=== PATIENT | female | born 1990 | race Caucasian/White ===

== ENCOUNTER 2017-02-26 19:24 | Emergency (ER) | payer OTHER ==
[~2017-02-26 19:24] MED LIST: PREN1CAP33
[2017-02-26] MEDS ORDERED: PROM25TA10 PO (20:11)
[2017-02-26] MEDS ORDERED: PROM1SUP7 RECTAL (20:12)
[2017-02-26] MEDS ORDERED: LACTATED RINGER'S 1000 ML INJ 1,000 ML IV SCH (20:12)
--- NOTE | 2017-02-26 20:12 | PD ---
HPI Chief Complaint Nausea and vomiting today Date Seen: Feb 26, 2017 Time Seen: 20:00 Travel History International Travel<30 Days: No Contact w/Intl Traveler<30Days: No Known Affected Area: No History of Present Illness HPI Patient is 26-year-old white female at 16 weeks [facility] and presents combining of nausea vomiting severe today, she was okay yesterday and has not been on ongoing problems she's had some morning sickness and nausea but not much vomiting up to this point. Today she was vomiting significant 20 minutes at time all day long. No bleeding or leakage. No pain noted, heart tones present Weeks Gestation: 16 Para: 0 : 2 Miscarriage: 1 History Obstetric History Obstetric History 1 early loss Social History Alcohol Use: No Tobacco Use: No Substance Abuse: No Allergies-Medications (Allergen,Severity, Reaction): Coded Allergies: No Known Allergies (Verified , 01/18/17) Home Meds Reported Medications Vit W/ Fe Polysacch C (Vitafol Fe+ 90-1-200 & 50 mg) 90 Mg Iron-1 Mg- 50 Mg-200 Mg Cap 01/18/17 Review of Systems General / Constitutional: No: Fever, Weight Gain, Chills, Other Eyes: No: Diploplia, Blurred Vision, Visual changes, Pain, Photophobia HENT: No: Headaches, Vertigo, Lightheadedness Cardiovascular: No: Irregular Rhythm, Chest Pain or Discomfort, Palpitations, Tachycardia, Syncope, Varicosities, Edema, Cyanosis Respiratory: No: Cough, Short of Breath, Other Gastrointestinal: Nausea, Vomiting, No: Diarrhea Genitourinary: No: Decreased Urinary Output, Oliguria Musculoskeletal: No: Limited ROM, Weakness, Cramping, Edema, Pain Skin: No Rash, No Itching, No Dryness, No Lumps, No Change in Pigmentation, No Change in Nails, No Alopecia, No Lesions Neurologic: No: Weakness, Dizziness, Syncope, Focal Abnormalities, Coordination Problem, Headache, Slurred Speech, Seizures Psychiatric: No: Depression, Suicidal Ideations, Homicidal Ideation Endocrine: No: Heat Intolerance, Cold Intolerance, Polydipsia, Polyuria, Other Physical Exam Narrative GENERAL: Well-nourished, well-developed patient. SKIN: Warm and dry. HEAD: Normocephalic and atraumatic. EYES: No scleral icterus. No injection or drainage. ENT: No nasal drainage noted. Mucous membranes pink. Airway patent. NECK: Supple, trachea midline. No JVD. CARDIOVASCULAR: Regular rate and rhythm without murmurs, gallops, or rubs. RESPIRATORY: Breath sounds equal bilaterally. No accessory muscle use. BREASTS: Bilateral exam showed no masses , no retractions, no nipple discharge. ABDOMEN/GI: Abdomen soft, non-tender, bowel sounds present, no rebound, no guarding Gravid to [-16] weeks size Fundal Height: [below umb-] GENITOURINARY: External Genitalia: intact and normal in appearance BUS glands: [-] Cervix: [-closed] Dilatation: [0-] Effacement: [thick-] Station: [-3] Membranes: [intact ] Uterine Contractions: [none-] FHT's: 145 EXTREMITIES: No cyanosis or edema. BACK: Nontender without obvious deformity. No CVA tenderness. NEUROLOGICAL: Awake and alert. Motor and sensory grossly within normal limits. Five out of 5 muscle strength in all muscle groups. Normal speech. MDM Interpretation(s) Patient is a 26-year-old white female A1 at 16 weeks presents with nausea vomiting today. No other problems or complaints. Has no medicine at home for this. Plan Plan to hydrate with a liter of IV fluid give her Zofran IV and Reglan IV, home with a prescription for Phenergan by mouth and suppositories to use as a backup. 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
[2017-02-26] MEDS ORDERED: METOCLOPRAMIDE HCL 10 MG/2 ML VIAL IV PUSH ONE (20:15)
[2017-02-26] MEDS ORDERED: ONDANSETRON HCL 4 MG/2 ML VIAL IV PUSH ONE (20:15)
== END 2017-02-26 21:21 | disposition home or self-care (01) ==
LOC: HOBED 19:24
DX: O21.0 Mild hyperemesis gravidarum (principal); Z3A.16 16 weeks gestation of pregnancy
CPT/HCPCS: 96374; 96375; 99284; J2405; J2765; J7120

== ENCOUNTER 2017-05-26 18:49 | Emergency (ER) | payer OTHER ==
[2017-05-26] MEDS: LACTATED RINGER'S 1000 ML INJ 1,000 ML IV (19:42)
[2017-05-26 20:07] LABS: HEMATOCRIT 35.6 % (35.0-46.0); HEMOGLOBIN 12.3 GM/DL (11.6-15.3); MEAN CELL VOLUME 95.1 FL (80.0-100.0); MEAN CORPUSCULAR HEMOGLOBIN 32.9 PG (27.0-34.0); MEAN CORPUSCULAR HGB CONC 34.6 % (32.0-36.0); MEAN PLATELET VOLUME 9.7 FL (7.0-11.0); PLATELET COUNT 175 TH/MM3 (150-450); RED BLOOD COUNT 3.74 MIL/MM3 (4.00-5.30); RED CELL DISTRIBUTION WIDTH 12.6 % (11.6-17.2); REVIEW FLAG FINAL; WHITE BLOOD COUNT 11.5 TH/MM3 (4.0-11.0)
[2017-05-26 20:26] LABS: BACTERIA, URINE RARE /hpf; BILIRUBIN, URINE NEG (NEG); BLOOD, URINE NEG (NEG); GLUCOSE,URINE NEG (NEG); KETONE, URINE NEG (NEG); MUCUS URINE FEW /lpf (OCC); NITRITE,URINE NEG (NEG); SQUAMOUS EPITHELIAL CELL URINE <1 /hpf (0-5); URINE COLOR LIGHT-YELLOW (YELLW/STRAW); URINE LEUKOCYTE ESTERASE NEG (NEG)
[2017-05-26 20:28] LABS: COMMENT (UR) CULT NOT INDICATED; CULTURE IF INDICATED CULT NOT INDICATED
[2017-05-26 20:34] LABS: ALBUMIN 3.1 GM/DL (3.4-5.0); ANION GAP 9 MEQ/L (5-15); AST (GOT) 19 U/L (15-37); BICARBONATE 23.3 MEQ/L (21.0-32.0); BLOOD UREA NITROGEN 8 MG/DL (7-18); CALCIUM 8.9 MG/DL (8.5-10.1); CHLORIDE 105 MEQ/L (98-107); CREATININE 0.53 MG/DL (0.50-1.00); GLOMERULAR FILTRATION RATE 136 ML/MIN (>89); GLUCOSE,RANDOM 84 MG/DL (74-106); POTASSIUM 3.8 MEQ/L (3.5-5.1); SODIUM (NA) 137 MEQ/L (136-145)
[2017-05-26 20:35] LABS: ALT (GPT) 26 U/L (10-53); AMPHETAMINE, URINE NEG (NEG); BARBITURATES, URINE NEG (NEG); BENZODIAZEPINE,URINE NEG (NEG); CANNABINOIDS, URINE NEG (NEG); COCAINE, URINE NEG (NEG)
[2017-05-26 20:37] LABS: ALKALINE PHOSPHATASE 74 U/L (45-117); TOTAL BILIRUBIN ADULT 0.2 MG/DL (0.2-1.0); TOTAL PROTEIN 6.8 GM/DL (6.4-8.2)
[2017-06-01 08:17] LABS: BATH SALTS (MDPV) UR NEG (NEG); BUPRENORPHINE UR NEG (NEG); ECSTASY (MDMA) UR NEG (NEG); FENTANYL UR NEG (NEG); HEROIN (6-ACETYLMORPHINE) UR NEG (NEG); K2 SPICE UR NEG (NEG); OBGABAPENTIN UR NEG (NEG); OBHYDROMORPHONE U NEG (NEG); OBMETHADONE UR NEG (NEG); OXYCODONE (PERCODAN) NEG (NEG); PHENCYCLIDINE URINE NEG (NEG)
== END 2017-05-26 21:00 | disposition home or self-care (01) ==
LOC: HOBED 18:49
DX: O26.893 Other specified pregnancy related conditions, third trimester (principal); M54.9 Dorsalgia, unspecified; O99.283 Endocrine, nutritional and metabolic diseases complicating pregnancy, third trimester; E05.90 Thyrotoxicosis, unspecified without thyrotoxic crisis or storm; Z3A.28 28 weeks gestation of pregnancy
CPT/HCPCS: 80053; 80307; 81001; 85027; 96374; 99284-25

== ENCOUNTER 2017-07-26 11:22 | Emergency (ER) | payer OTHER ==
[~2017-07-26 11:22] MED LIST changes: +TYLETAB34 PO
--- NOTE | 2017-07-26 12:00 | PD ---
HPI Chief Complaint Vaginal bleeding Date Seen: Jul 26, 2017 Time Seen: 12:00 Travel History International Travel<30 Days: No Contact w/Intl Traveler<30Days: No History of Present Illness HPI Ms. Jain is a 27-year-old at 37/4 weeks gestation presenting to the OB ED today due to concerns about vaginal bleeding. She states that the bleeding started this morning at 730 when she went to use the bathroom and wiped. She states that the toilet tissue was covered in blood and also had a small blood clot. The bleeding stopped and then when she went to the bathroom again at 9 AM she also had blood on the toilet tissue when she wiped. She has not bled since that time. No contractions, no leakage of fluid, she is still feeling baby move, no dysuria, no chest pain, no shortness of breath, no leg pain. When she had her cervix checked at her OB provider 2 days ago she was 1 cm. She lost her mucous plug yesterday. 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 Denies alcohol, tobacco, or illicit drug use Alcohol Use: No Tobacco Use: No Substance Abuse: No Allergies-Medications Home Meds Active Scripts Acetaminophen-Codeine (Tylenol-Codeine #3) 300-30 mg Tab, 1-2 TAB PO Q6H Y for PAIN for 7 Days, #20 TAB 0 Refills Prov:Chele Hanson II, MD 05/26/17 Reported Medications Vit W/ Fe Polysacch C (Vitafol Fe+ 90-1-200 & 50 mg) 90 Mg Iron-1 Mg- 50 Mg-200 Mg Cap 01/18/17 Review of Systems General / Constitutional: No: Fever, Chills Eyes: No: Blurred Vision HENT: No: Headaches Cardiovascular: No: Chest Pain or Discomfort Respiratory: No: Cough, Short of Breath Gastrointestinal: No: Nausea, Vomiting Genitourinary: No: Dysuria Musculoskeletal: No: Weakness Skin: No Rash Neurologic: No: Dizziness Physical Exam Narrative GENERAL: Well-nourished, well-developed patient. SKIN: Warm and dry. HEAD: Normocephalic and atraumatic. EYES: No scleral icterus. No injection or drainage. ENT: No nasal drainage noted. Mucous membranes pink. Airway patent. NECK: Supple, trachea midline. No JVD. CARDIOVASCULAR: Regular rate and rhythm without murmurs, gallops, or rubs. RESPIRATORY: Breath sounds equal bilaterally. No accessory muscle use. BREASTS: Bilateral exam showed no masses , no retractions, no nipple discharge. ABDOMEN/GI: Abdomen soft, non-tender, bowel sounds present, no rebound, no guarding Gravid to 38 weeks size GENITOURINARY: External Genitalia: intact and normal in appearance Speculum exam: Brownish discharge in vaginal canal, no active bleeding from cervical os Cervix: posterior Dilatation: 1-2 Effacement: 50 Station: -2 Presentation: vertex Membranes: intact Uterine Contractions: none FHT's: Category: 1 Baseline: 140s Reactive: yes Variability: moderate Decels: none EXTREMITIES: No cyanosis or edema. BACK: Nontender without obvious deformity. No CVA tenderness. NEUROLOGICAL: Awake and alert. Motor and sensory grossly within normal limits. Five out of 5 muscle strength in all muscle groups. Normal speech. Data Data Vital Signs Reviewed: Yes Orders Orders Vital Signs (Adult) .ON ADMISSION (07/26/17 11:59) ^ Labor Status (07/26/17 11:59) ^ Non Stress Test (07/26/17 11:59) MDM Plan 27-year-old at 37/4 weeks gestation presenting for vaginal bleeding Pelvic exam shows no active bleeding FHT is category 1, reassuring BPP performed by Dr. Larios 12/19 -Patient is Rh-, states that she received her last RhoGam shot May 25, 2017 , discussed with attending and will hold off at this time -Reassured patient -Advised patient about signs of labor and when to return to the hospital SDW Dr. Larios Diagnosis Diagnosis: Primary Impression: 37 weeks gestation of Disposition: DISCHARGE HOME Condition: Stable Madeline Muniz MD R1 Jul 26, 2017 12:00
--- NOTE | 2017-07-26 12:50 | PD ---
History of Present Illness History of Present Illness NST/BPP report Indications: IUP at 37 weeks, vaginal bleeding/spotting NST was performed with baseline in the 130s, moderate long-term variability, good accelerations, no decelerations noted. This is a reactive NST and category 1 heart rate tracing. Biophysical profile: A biophysical profile was performed and shows the fetus in cephalic presentation. The placenta appeared grossly normal. No anatomic survey was performed. The patient received a score of 8/8 on the biophysical profile. All needed components were visualized. Patient had a greater than 2 x 2 centimeters pocket of fluid. The patient had numerous gross body movements and numerous flexion/extension movements. There is over 30 seconds of breathing noted. The OCTAVIA was 11.46. Final diagnosis: IUP at 37 weeks, No evidence of active bleeding with a small amount of dark brown discharge in the vaginal vault. No bleeding was noted to be coming from the cervical os. Follow-up: Follow up with primary OB in 2-3 days or sooner if needed. Brittany Larios MD Jul 26, 2017 12:50
== END 2017-07-26 13:50 | disposition home or self-care (01) ==
LOC: HOBED 11:22
DX: O46.93 Antepartum hemorrhage, unspecified, third trimester (principal); O99.283 Endocrine, nutritional and metabolic diseases complicating pregnancy, third trimester; E05.90 Thyrotoxicosis, unspecified without thyrotoxic crisis or storm; Z3A.37 37 weeks gestation of pregnancy
CPT/HCPCS: 59025; 76815

== ENCOUNTER 2017-08-04 02:45 | Inpatient (IN) | payer OTHER ==
[2017-08-04] VITALS (55 sets, daily range): BP systolic 105–143; BP diastolic 55–82; PULSE 82–127; RESP 1–22; TEMP 97.7–98.8; O2SAT 97–100
[2017-08-04] MEDS ORDERED: LACTATED RINGER'S 1000 ML INJ 1,000 ML IV SCH ×4 (03:15→12:20)
[2017-08-04] MEDS ORDERED: LACTATED RINGER'S 1000 ML INJ 500 ML IV ONE (03:15)
[2017-08-04] MEDS ORDERED: ONDANSETRON HCL 4 MG/2 ML VIAL IV PUSH ONE (03:15)
[2017-08-04] MEDS ORDERED: LORazepam 2 MG/ML VIAL IV PUSH PRN (03:45)
--- NOTE | 2017-08-04 03:47 | PD ---
HPI Chief Complaint abdominal pain, nausea and vomiting Travel History International Travel<30 Days: No Contact w/Intl Traveler<30Days: No Known Affected Area: No History of Present Illness HPI 27-year-old 010, IUP at 38.6 care complicated by hyperthyroidism not requiring medications, history of ulcers in the past The patient presents complaining of the onset of acute epigastric pain that she rates 10 out of 10 between 11:30 and 12 AM. The patient reports she fell asleep at approximately 9 PM. There were some concerning family matters that caused the police to interrupt her family 11 PM. She reports that she was awoken at that time and started to experience the acute onset of pain. She reports that she started vomiting at 12:30 AM and has had intermittent vomiting since. She reports that the pain is continuous. There are no aggravating or alleviating factors. She reports good movement. She denies any painful contractions or cramping. She denies any leaking of fluid or vaginal bleeding. Weeks Gestation: 38 Para: 0 : 2 Miscarriage: 1 : 0 History Past Medical History Narrative Medical Hyperthyroidism, history of ulcers Obstetric History Obstetric History SAB 1 Past Surgical History Narrative Surgical Breast augmentation Family History Narrative Family History DM TIA NE CAD Social History Alcohol Use: No Tobacco Use: No Substance Abuse: No Allergies-Medications (Allergen,Severity, Reaction): Coded Allergies: fentanyl (Unverified Adverse Reaction, Intermediate, Hives, 07/26/17) Nausea vomiting, pruritus, hives Home Meds Active Scripts Acetaminophen-Codeine (Tylenol-Codeine #3) 300-30 mg Tab, 1-2 TAB PO Q6H Y for PAIN for 7 Days, #20 TAB 0 Refills Prov:Chele Hanson II, MD 05/26/17 Reported Medications Vit W/ Fe Polysacch C (Vitafol Fe+ 90-1-200 & 50 mg) 90 Mg Iron-1 Mg- 50 Mg-200 Mg Cap 01/18/17 Review of Systems Except as stated in HPI: all other systems reviewed are Neg Eyes: No: Diploplia, Blurred Vision, Visual changes, Pain, Photophobia, Other Physical Exam Narrative GENERAL: Well-nourished, well-developed patient. SKIN: Warm and dry. HEAD: Normocephalic and atraumatic. EYES: No scleral icterus. No injection or drainage. ENT: No nasal drainage noted. Mucous membranes pink. Airway patent. NECK: Supple, trachea midline. No JVD. CARDIOVASCULAR: Regular rate and rhythm without murmurs, gallops, or rubs. RESPIRATORY: Breath sounds equal bilaterally. No accessory muscle use. BREASTS: Bilateral exam showed no masses , no retractions, no nipple discharge. ABDOMEN/GI: Abdomen soft, non-tender, bowel sounds present, no rebound, no guarding Gravid GENITOURINARY: External Genitalia: intact and normal in appearance. Grossly normal BUS, no cervical or vaginal masses noted. Physiologic discharge. Grossly normal rugae. SVE 1/thick/-3, posterior FHT's: NST is indicated for elevated blood pressures and severe preeclampsia at term. heart tones are in the 130s with moderate long-term variability, good accelerations, no decelerations noted. This is a category 1 heart rate tracing and a reactive NST. We'll continue monitoring as proceed to the OR for severe preeclampsia/HELLP at term EXTREMITIES: No cyanosis or edema. BACK: Nontender without obvious deformity. NEUROLOGICAL/musculoskeletal: Awake and alert. Motor and sensory grossly within normal limits. Grossly normal Five out of 5 muscle strength in all muscle groups. Normal speech. Grossly normal range of motion, gait. No clonus noted. DTR 2+ Psychiatric: Grossly normal memory and affect Data Data Orders Orders Ondansetron Inj (Zofran Inj) (08/04/17 03:15) Lactated Ringer's 1000 Ml Inj (Lr 1000 M (08/04/17 03:15) Lactated Ringer's 1000 Ml Inj (Lr 1000 M (08/04/17 03:15) Protein Creat Ratio, Random Ur (08/04/17 03:44) Lorazepam Inj (Ativan Inj) (08/04/17 03:45) Uric Acid (08/04/17 03:44) MDM Plan Assessment/plan: 1. IUP at 38.6 2. HELLP: The patient presented with severe epigastric pain that was acute in onset. The pain was somewhat relieved with morphine and Ativan. A preeclampsia evaluation was performed due to the epigastric pain and elevated blood pressures. The preeclampsia evaluation revealed help platelet count of 128,000, AST 281, ALT 227, uric acid 6.0, protein creatinine ratio 0.32. These findings are consistent with help. Will start magnesium 4 g loading dose followed by 2 g per hour. Discussed induction of labor versus delivery with patient. Discussed that based on her cervical exam I am concerned this will has the potential to be a prolonged induction. In addition to the laboratory findings, her severe epigastric pain causes concern for worsening maternal status with any significant delay of delivery. The risks of induction were discussed with the patient and her Wanda support member. The risks, benefits, and alternatives to delivery were discussed as well. The patient agreed to proceed with a delivery due to her preeclampsia/ HELLP. Risks discussed include but are not limited to pain, infection, bleeding , injury to other organs like the bladder/bowel/nerves/vessels, injury to the baby, need for repeat operation, need for hysterectomy, need for blood transfusion, wound infection/breakdown, and other possible risks. The patient signed consent and the appropriate members from other teams were notified. We' ll proceed with delivery. 3. well-being: Reassuring testing with reactive NST and category 1 heart rate tracing 4. History of hyperthyroidism: Has not required any medication 5. History of ulcers Brittany Larios MD Aug 04, 2017 03:47
[2017-08-04] MEDS ORDERED: MORPHINE SULFATE 4 MG/ML INJ IV ONE (04:00)
[2017-08-04] MEDS ORDERED: CITRIC ACID-SODIUM CITRATE LIQ 30 ML UDC PO ONE (04:00)
[2017-08-04 04:11] LABS: AUTOMATED NEUTROPHIL # 8.5 TH/MM3 (1.8-7.7); BASOPHIL # 0.1 TH/MM3 (0-0.2); BASOPHIL % 0.5 % (0.0-2.0); EOSINOPHIL # 0.3 TH/MM3 (0-0.4); EOSINOPHIL % 2.9 % (0.0-4.0); HEMATOCRIT 38.8 % (35.0-46.0); HEMOGLOBIN 13.4 GM/DL (11.6-15.3); LYMPH % 18.5 % (9.0-44.0); LYMPHOCYTE # 2.2 TH/MM3 (1.0-4.8); MEAN CELL VOLUME 95.7 FL (80.0-100.0); MEAN CORPUSCULAR HGB CONC 34.5 % (32.0-36.0); MEAN PLATELET VOLUME 11.7 FL (7.0-11.0); MONO % 5.5 % (0.0-8.0); MONOCYTE # 0.6 TH/MM3 (0-0.9); NEUT % 72.6 % (16.0-70.0); PLATELET COUNT 128 TH/MM3 (150-450); RED BLOOD COUNT 4.06 MIL/MM3 (4.00-5.30); RED CELL DISTRIBUTION WIDTH 13.3 % (11.6-17.2); WHITE BLOOD COUNT 11.7 TH/MM3 (4.0-11.0)
[2017-08-04 04:27] LABS: ALKALINE PHOSPHATASE 157 U/L (45-117); ALT (GPT) 227 U/L (10-53); TOTAL BILIRUBIN ADULT 0.3 MG/DL (0.2-1.0); TOTAL PROTEIN 7.5 GM/DL (6.4-8.2)
[2017-08-04 04:31] LABS: ALBUMIN 3.3 GM/DL (3.4-5.0); AST (GOT) 281 U/L (15-37); BICARBONATE 21.9 MEQ/L (21.0-32.0); BLOOD UREA NITROGEN 10 MG/DL (7-18); CALCIUM 8.9 MG/DL (8.5-10.1); CHLORIDE 107 MEQ/L (98-107); CREATININE 0.75 MG/DL (0.50-1.00); GLOMERULAR FILTRATION RATE 91 ML/MIN (>89); GLUCOSE,RANDOM 82 MG/DL (74-106); SODIUM (NA) 141 MEQ/L (136-145)
[2017-08-04] MEDS ORDERED: ONDANSETRON HCL 4 MG/2 ML VIAL IV PUSH PRN (04:45)
[2017-08-04] MEDS ORDERED: MAGNESIUM SULFATE 4 GM PREMIX 100 ML IV ONE (04:45)
[2017-08-04] MEDS ORDERED: CALCIUM GLUCONATE 10% 1 GM/10 ML VIAL IV PUSH PRN (04:45)
[2017-08-04] MEDS ORDERED: SODIUM CHLORIDE 0.9% FLUSH 10 ML FLUSH IV FLUSH PRN ×2 (04:45→07:30)
[2017-08-04] MEDS ORDERED: LACTATED RINGER'S 1000 ML INJ 1,000 ML IV ONE (04:54)
[2017-08-04] MEDS: MAGNESIUM SULFATE 40 GM PREMIX 1,000 ML IV SCH ×2 (04:58→09:09)
--- NOTE | 2017-08-04 05:30 | HHI.HP ---
History & Physical H&P Patient Name: Lisette Jain Unit Number: [id number] Date of : 1990 Patient Status: Admitted Inpatient Attending Doctor: Brittany Larios MD HPI HPI Chief Complaint abdominal pain, nausea and vomiting Travel History International Travel<30 Days: No Contact w/Intl Traveler<30Days: No Known Affected Area: No History of Present Illness HPI 27-year-old 010, IUP at 38.6 care complicated by hyperthyroidism not requiring medications, history of ulcers in the past The patient presents complaining of the onset of acute epigastric pain that she rates 10 out of 10 between 11:30 and 12 AM. The patient reports she fell asleep at approximately 9 PM. There were some concerning family matters that caused the police to interrupt her family 11 PM. She reports that she was awoken at that time and started to experience the acute onset of pain. She reports that she started vomiting at 12:30 AM and has had intermittent vomiting since. She reports that the pain is continuous. There are no aggravating or alleviating factors. She reports good movement. She denies any painful contractions or cramping. She denies any leaking of fluid or vaginal bleeding. Weeks Gestation: 38 Para: 0 : 2 Miscarriage: 1 : 0 History (Limited) History Past Medical History Narrative Medical Hyperthyroidism, history of ulcers Obstetric History Obstetric History SAB 1 Past Surgical History Narrative Surgical Breast augmentation Family History Narrative Family History DM TIA MD CAD Social History Alcohol Use: No Tobacco Use: No Substance Abuse: No Allergies-Medications Allergies-Medications (Allergen,Severity, Reaction): Coded Allergies: fentanyl (Unverified Adverse Reaction, Intermediate, Hives, 07/26/17) Nausea vomiting, pruritus, hives Home Meds Active Scripts Acetaminophen-Codeine (Tylenol-Codeine #3) 300-30 mg Tab, 1-2 TAB PO Q6H Y for PAIN for 7 Days, #20 TAB 0 Refills Prov:Chele Hanson II, MD 05/26/17 Reported Medications Vit W/ Fe Polysacch C (Vitafol Fe+ 90-1-200 & 50 mg) 90 Mg Iron-1 Mg- 50 Mg-200 Mg Cap 01/18/17 ROS Review of Systems Except as stated in HPI: all other systems reviewed are Neg Eyes: No: Diploplia, Blurred Vision, Visual changes, Pain, Photophobia, Other Physical Exam Physical Exam Narrative GENERAL: Well-nourished, well-developed patient. SKIN: Warm and dry. HEAD: Normocephalic and atraumatic. EYES: No scleral icterus. No injection or drainage. ENT: No nasal drainage noted. Mucous membranes pink. Airway patent. NECK: Supple, trachea midline. No JVD. CARDIOVASCULAR: Regular rate and rhythm without murmurs, gallops, or rubs. RESPIRATORY: Breath sounds equal bilaterally. No accessory muscle use. BREASTS: Bilateral exam showed no masses , no retractions, no nipple discharge. ABDOMEN/GI: Abdomen soft, non-tender, bowel sounds present, no rebound, no guarding Gravid GENITOURINARY: External Genitalia: intact and normal in appearance. Grossly normal BUS, no cervical or vaginal masses noted. Physiologic discharge. Grossly normal rugae. SVE 1/thick/-3, posterior FHT's: NST is indicated for elevated blood pressures and severe preeclampsia at term. heart tones are in the 130s with moderate long-term variability, good accelerations, no decelerations noted. This is a category 1 heart rate tracing and a reactive NST. We'll continue monitoring as proceed to the OR for severe preeclampsia/HELLP at term EXTREMITIES: No cyanosis or edema. BACK: Nontender without obvious deformity. NEUROLOGICAL/musculoskeletal: Awake and alert. Motor and sensory grossly within normal limits. Grossly normal Five out of 5 muscle strength in all muscle groups. Normal speech. Grossly normal range of motion, gait. No clonus noted. DTR 2+ Psychiatric: Grossly normal memory and affect Data Data Data Orders Orders Ondansetron Inj (Zofran Inj) (08/04/17 03:15) Lactated Ringer's 1000 Ml Inj (Lr 1000 M (08/04/17 03:15) Lactated Ringer's 1000 Ml Inj (Lr 1000 M (08/04/17 03:15) Protein Creat Ratio, Random Ur (08/04/17 03:44) Lorazepam Inj (Ativan Inj) (08/04/17 03:45) Uric Acid (08/04/17 03:44) [facility] Plan Assessment/plan: 1. IUP at 38.6 2. HELLP: The patient presented with severe epigastric pain that was acute in onset. The pain was somewhat relieved with morphine and Ativan. A preeclampsia evaluation was performed due to the epigastric pain and elevated blood pressures. The preeclampsia evaluation revealed help platelet count of 128,000, AST 281, ALT 227, uric acid 6.0, protein creatinine ratio 0.32. These findings are consistent with help. Will start magnesium 4 g loading dose followed by 2 g per hour. Discussed induction of labor versus delivery with patient. Discussed that based on her cervical exam I am concerned this will has the potential to be a prolonged induction. In addition to the laboratory findings, her severe epigastric pain causes concern for worsening maternal status with any significant delay of delivery. The risks of induction were discussed with the patient and her Wanda support member. The risks, benefits, and alternatives to delivery were discussed as well. The patient agreed to proceed with a delivery due to her preeclampsia/ HELLP. Risks discussed include but are not limited to pain, infection, bleeding , injury to other organs like the bladder/bowel/nerves/vessels, injury to the baby, need for repeat operation, need for hysterectomy, need for blood transfusion, wound infection/breakdown, and other possible risks. The patient signed consent and the appropriate members from other teams were notified. We' ll proceed with delivery. 3. well-being: Reassuring testing with reactive NST and category 1 heart rate tracing 4. History of hyperthyroidism: Has not required any medication 5. History of ulcers Brittany Larios MD Aug 04, 2017 03:47 Brittany Larios MD Aug 04, 2017 05:30
[2017-08-04] MEDS ORDERED: MORPHINE SULFATE PF 5 MG/10 ML VIAL ONE (05:40)
[2017-08-04] MEDS ORDERED: ACETAMINOPHEN 1000 MG/100 ML 100 ML IV ONE (05:40)
[2017-08-04] MEDS ORDERED: CEFAZOLIN INJ 2,000 MG in SODIUM CHLORIDE 0.9% INJ 100 ML IV SCH (06:00)
[2017-08-04 06:11] LABS: INTERNATIONAL NORMALIZED RATIO 0.9 RATIO; PROTHROMBIN TIME - PATIENT 9.6 SEC (9.8-11.6)
[2017-08-04] MEDS ORDERED: MISOPROSTOL 200 MCG TAB ONE (06:22)
[2017-08-04] MEDS ORDERED: CITRIC ACID-SODIUM CITRATE LIQ 30 ML UDC PO SCH (06:30)
[2017-08-04] MEDS ORDERED: MEPERIDINE HCL 25 MG/ML VIAL ONE (07:27)
[2017-08-04] MEDS ORDERED: OXYTOCIN 30 UNITS-500ML PREMIX 500 ML IV ONE (07:30)
[2017-08-04] MEDS ORDERED: oxyCODONE/ACETAMINOPHEN 5 MG/325 MG TAB PO PRN ×2 (07:30)
[2017-08-04] MEDS ORDERED: IBUPROFEN 600 MG TAB PO PRN (07:30)
[2017-08-04] MEDS ORDERED: ACETAMINOPHEN 325 MG TAB PO PRN (07:30)
--- NOTE | 2017-08-04 07:40 | PD.OB.DELI ---
Procedure Note Section Procedure Performed by Brittany Larios Procedure: Primary Low Transverse Sec Indication for delivery: Maternal medical problems (Severe preeclampsia/HELLP) Previous condition: None Informed consent obtained: For anesthesia, For procedure Confirmed correct: Patient, Procedure, Site, Time-out taken Anesthesia: Spinal Medication prior to procedure: As documented in eMAR Monitoring during procedure: Blood pressure monitoring, environmental monitoring technician, doppler, monitor, Pulse oximetry Urinary catheter: Inserted using sterile technique, To dependent drainage, ml urine output (As per anesthesia report, clear urine) Sterile preparation: Other (chloraprep) Position: Supine with wedge to left side Operative Features Skin Incision: Pfannenstiel Uterine Incision: Low transverse w/knife / blunt ext Membranes Ruptured: Artificially Presentation: Occiput anterior Delivery date: Aug 04, 2017 Delivery time: 06:30 Delivery of : Uneventful : Male One Minute : 9 Five Minute : 9 Weight: 7#7oz Status of infant: Viable, Cord blood Placenta delivered: Intact, Sent to pathology Medications: Antibiotics, Oxytocin Estimated blood loss: 800cc Procedure tolerated: Well Maternal Condition: Stable Condition: Stable Procedure in detail See dictation Brittany Larios MD Aug 04, 2017 07:40
[2017-08-04] MEDS ORDERED: ONDANSETRON HCL 4 MG/2 ML VIAL ONE (08:38)
[2017-08-04] MEDS: ONDANSETRON HCL 4 MG/2 ML VIAL IV PUSH PRN (08:41)
--- NOTE | 2017-08-04 08:46 | MP ---
cc: Brittany Larios MD DATE OF OPERATION: 08/04/2017 DATE OF PROCEDURE: 08/04/2017. PREOPERATIVE DIAGNOSES: 1. Intrauterine at 38 weeks and 6 days. 2. Severe preeclampsia/hemolysis, elevated liver enzymes, low platelet count (HELLP). 3. Hyperthyroidism. POSTOPERATIVE DIAGNOSES: 1. Intrauterine at 38 weeks and 6 days. 2. Severe preeclampsia/hemolysis, elevated liver enzymes, low platelet count (HELLP). 3. Hyperthyroidism. PROCEDURE PERFORMED: Primary low transverse section with 2-layer closure and no extensions via Pfannenstiel skin incision. The bladder was retrograde instilled with sterile milk and noted to be without defect. DESCRIPTION AND FINDINGS: A viable male infant in cephalic presentation with Apgars 9 and 9, weighing 7 pounds, 7 ounces. The patient had normal maternal anatomy with normal fallopian tubes, uterus, and ovaries. SURGEON: Dr. Brittany Larios RETORT FEEDER GROUND BONE: Leanne Liao. Beckie Serrato. SPECIMENS REMOVED: Placenta, which was sent to pathology. ESTIMATED BLOOD LOSS: 800 mL IV FLUIDS: 1300 mL lactated Ringer's. URINE OUTPUT: Clear urine was noted. Volume as per anesthesia records. INDICATIONS: The patient is a 27-year-old 2, para 0, who presented at 38 weeks and 6 days with acute onset of severe epigastric pain. She was noted to have elevated blood pressures. Preeclampsia workup was performed and she was noted to have an elevated AST and ALT. She was also noted to have a low platelet count of 128,000. Her protein/creatinine ratio was elevated at 0.32. Vaginal examination was performed and the patient was noted to be 1/thick/high. Due to the patient's unfavorable cervix and the severe nature of her preeclampsia as well, as her severe epigastric pain, the decision was made to initiate magnesium and proceed with delivery. The patient was in agreement with the plan. PROCEDURE DESCRIPTION: After obtaining informed consent with risks, benefits and alternatives discussed at length including, but not limited to pain, infection, bleeding, injury to other organs like the bladder, bowels, nerves and vessels, injury to the baby, need for repeat operation, need for blood transfusion, need for hysterectomy, wound infection and breakdown and other possible complications, the patient was taken to the operating room with reassuring heart tones noted. She underwent spinal anesthesia and was placed in the dorsal supine position with a leftward tilt. Reassuring heart tones were confirmed and adequate anesthesia confirmed. After adequate anesthesia was confirmed, the patient was prepped and draped in normal sterile fashion. A timeout procedure was performed. After once again confirming adequate anesthesia, a Pfannenstiel skin incision was made with the scalpel and carried to the level of the fascia. The fascia was nicked in the midline with the scalpel and the fascial incision extended laterally with curved Fonseca scissors. Danilo clamps were applied to the superior aspect of the fascial incision, which was dissected off the underlying rectus muscles bluntly and with the curved Fonseca scissors. The Danilo clamps were applied to the inferior aspect of the fascial incision which was dissected off in a similar fashion. The rectus muscles were in the midline and the peritoneum entered bluntly. The peritoneal incision was extended bluntly. David self-retaining wound retractor was placed and the lower uterine segment was visualized. The vesicouterine peritoneum was grasped with the pickups and entered sharply with the Metzenbaums. This incision was extended laterally and the bladder flap created digitally. The lower uterine segment was incised with the scalpel and the hysterotomy created bluntly. The hysterotomy was extended bluntly. The vertex was elevated to the level of the hysterotomy and delivered atraumatically, followed by atraumatic delivery of the remainder of the . The was vigorous on the field and the mother had requested we wait delay cord clamping until the umbilical cord had stopped pulsating. Due to the reassuring status, we complied with this request. The cord was doubly clamped and cut and the handed off to the waiting neonatology team. Cord blood was obtained for the nursery and the placenta was removed manually. The uterus was cleared of all clots and debris and the hysterotomy repaired with a #1 chromic in a running locked fashion. A second layer of the same suture was used in imbricating fashion after which excellent hemostasis was noted. Although the patient had clear urine, the decision was made to proceed with retrograde instillation of the bladder due to the bladder's initial proximity after repair to the hysterotomy repair. The bladder was retrograde instilled with sterile milk and noted to be intact, without defect following removal of the David self-retaining wound retractor. The gutters were cleared of all clots and debris and the maternal anatomy inspected and found to be grossly normal. The hysterotomy was once again inspected and noted to be hemostatic. The peritoneum was reapproximated with 2-0 Vicryl in a running fashion. Rectus muscles were examined and noted to be hemostatic; however, were slightly friable so Trent was placed. The muscles were examined and noted to be hemostatic. The fascia was reapproximated with 1 Vicryl in a running fashion. The fascia was noted to be closed without defect. The subcutaneous tissue was irrigated with warm normal saline and noted to be hemostatic, although there was some oozing at the skin edges. The subcutaneous tissue was reapproximated with 2-0 Vicryl in an interrupted fashion. The skin edges were reapproximated with 3-0 Caprosyn in a subcuticular fashion. Excellent hemostasis was noted. Dermabond was placed and excellent cosmesis was noted. Hemostasis was ensured and a pressure dressing placed. All sponge, lap, and needle counts were correct x2. I performed the entire procedure myself. The patient was taken to PACU in stable condition. MD RICKEY Nicole/BONITA , 08:11 AM , 08:44 AM
[2017-08-04] MEDS ORDERED: SODIUM CHLORIDE 0.9% FLUSH 10 ML FLUSH IV FLUSH SCH (09:00)
[2017-08-04] MEDS: SODIUM CHLORIDE 0.9% FLUSH 10 ML FLUSH IV FLUSH SCH ×2 (09:00→21:00)
[2017-08-04] MEDS ORDERED: HYDROmorphone HCL PF 2 MG/ML VIAL IV ONE (11:00)
[2017-08-04] MEDS ORDERED: PROCHLORPERAZINE INJ 10 MG/2 ML VIAL IV ONE (11:00)
[2017-08-04] MEDS ORDERED: LACTATED RINGER'S 1000 ML INJ 2,000 ML IV ONE (12:00)
[2017-08-04] MEDS ORDERED: ONDANSETRON HCL 4 MG/2 ML VIAL IV ONE (12:00)
[2017-08-04] MEDS ORDERED: DEXAMETHASONE SOD PHOS 4 MG/ML VIAL IV ONE (12:00)
[2017-08-04] MEDS ORDERED: LIDOCAINE 2%/EPINEPHrine PF 1:200,000 20ML SDV OTHER ONE (12:00)
[2017-08-04] MEDS ORDERED: ePHEDrine/NS 25 MG/5 ML SYRINGE IV ONE (12:00)
[2017-08-04] MEDS ORDERED: OXYTOCIN 10 UNIT/ML AMP IV ONE (12:00)
[2017-08-04] MEDS ORDERED: ceFAZolin INJ 1,000 MG VIAL IV ONE (12:00)
[2017-08-04] MEDS ORDERED: OXYTOCIN 30 UNITS-500ML PREMIX 500 ML IV PRN (17:30)
[2017-08-05] VITALS (11 sets, daily range): BP systolic 95–119; BP diastolic 56–73; PULSE 77–98; RESP 16–18; TEMP 98.3–98.4
[2017-08-05] MEDS: MAGNESIUM SULFATE 40 GM PREMIX 1,000 ML IV SCH (00:01)
[2017-08-05 06:03] LABS: AUTOMATED NEUTROPHIL # 7.3 TH/MM3 (1.8-7.7); BASOPHIL % 0.2 % (0.0-2.0); EOSINOPHIL # 0.1 TH/MM3 (0-0.4); EOSINOPHIL % 0.9 % (0.0-4.0); HEMATOCRIT 26.5 % (35.0-46.0); HEMOGLOBIN 9.3 GM/DL (11.6-15.3); LYMPH % 12.5 % (9.0-44.0); LYMPHOCYTE # 1.1 TH/MM3 (1.0-4.8); MEAN CELL VOLUME 94.5 FL (80.0-100.0); MEAN CORPUSCULAR HEMOGLOBIN 33.3 PG (27.0-34.0); MEAN CORPUSCULAR HGB CONC 35.2 % (32.0-36.0); MEAN PLATELET VOLUME 9.8 FL (7.0-11.0); MONO % 5.8 % (0.0-8.0); MONOCYTE # 0.5 TH/MM3 (0-0.9); NEUT % 80.6 % (16.0-70.0); PLATELET COUNT 74 TH/MM3 (150-450); RED CELL DISTRIBUTION WIDTH 13.5 % (11.6-17.2); WHITE BLOOD COUNT 9.1 TH/MM3 (4.0-11.0)
[2017-08-05] MEDS: ONDANSETRON HCL 4 MG/2 ML VIAL IV PUSH PRN (08:06)
[2017-08-05 08:20] LABS: ALBUMIN 2.2 GM/DL (3.4-5.0); BICARBONATE 25.5 MEQ/L (21.0-32.0); CALCIUM 6.5 MG/DL (8.5-10.1); CREATININE 0.67 MG/DL (0.50-1.00); TOTAL BILIRUBIN ADULT 0.2 MG/DL (0.2-1.0); TOTAL PROTEIN 5.3 GM/DL (6.4-8.2)
[2017-08-05 08:24] LABS: CALCIUM-PROTEIN CORRECTED 7.4 MG/DL (8.5-10.1)
--- NOTE | 2017-08-05 09:20 | HHI.OB ---
Subjective Post Operative Day: 1 Remarks Postoperative day number 1 due to HELLP syndrome. AFVSS overnight. Pain minimal. Incision not draining. Decreased lochia. Denies dysuria. No breast tenderness. She is feeding the baby via breast. Appetite good. No nausea or vomiting. Endorses flatus. No bowel movement. Ambulating well. Denies calf pain, shortness of breath, or cough. Otherwise, she is doing well this morning and has no other complaints. Objective Vitals/I&O Vital Signs Date Time Temp Pulse Resp B/P (MAP) Pulse Ox O2 Delivery O2 Flow Rate FiO2 08/05/17 06:16 18 08/05/17 06:08 92 100/62 (75) 08/05/17 05:03 86 95/56 (69) 08/05/17 05:02 18 08/05/17 04:02 83 97/60 (72) 08/05/17 04:01 16 08/05/17 03:00 98.4 93 18 115/68 (84) 08/05/17 02:02 102/63 (76) 08/05/17 00:02 114/68 (83) 08/05/17 00:02 98 16 08/04/17 23:05 98.8 90 16 08/04/17 23:05 106/59 (75) 08/04/17 22:06 87 16 106/55 (72) 08/04/17 21:14 18 08/04/17 21:13 92 105/58 (74) 08/04/17 20:08 93 110/66 (81) 08/04/17 20:07 18 08/04/17 19:23 101 112/65 (81) 08/04/17 19:23 98.5 18 08/04/17 18:15 1 08/04/17 18:10 90 98 08/04/17 18:05 91 98 08/04/17 18:00 94 107/62 (77) 98 08/04/17 18:00 92 08/04/17 17:15 18 08/04/17 17:10 91 99 08/04/17 17:05 92 99 08/04/17 17:00 91 08/04/17 17:00 91 110/59 (76) 98 08/04/17 16:10 89 98 08/04/17 16:05 88 99 3/24/18 16:00 89 98 3/24/18 16:00 107/55 (72) 324/18 16:00 88 3/24/18 15:15 16 3/24/18 15:10 98 3/24/18 15:10 88 3/24/18 15:05 88 98 3/24/18 15:00 91 3/24/18 15:00 88 107/58 (74) 98 324/18 14:10 96 98 3/24/18 14:05 94 99 3/24/18 14:00 95 119/66 (83) 98 324/18 14:00 95 3/24/18 13:10 91 98 3/24/18 13:05 92 98 3/24/18 13:00 91 3/24/18 13:00 90 112/55 (74) 98 3/24/18 12:15 16 3/24/18 12:10 87 97 3/24/18 12:05 87 97 3/24/18 12:00 85 324/18 12:00 85 109/58 (75) 97 3/24/18 11:29 90 16 113/68 (83) 324/18 11:25 92 98 3/24/18 11:20 90 98 3/24/18 11:15 94 99 3/24/18 11:10 99 3/24/18 11:10 96 3/24/18 11:05 86 99 3/24/18 11:00 82 114/71 (85) 99 3/24/18 11:00 84 3/24/18 10:30 83 3/24/18 10:30 89 143/70 (94) 100 3/24/18 10:30 98.4 3/24/18 10:30 18 3/24/18 10:30 143/70 (94) 3/24/18 10:25 92 99 3/24/18 10:20 92 99 3/24/18 10:15 92 98 3/24/18 10:10 94 99 3/24/18 10:05 93 100 3/24/18 10:00 127 3/24/18 10:00 96 131/82 (98) 100 324/18 09:30 121/82 (95) 324/18 09:30 20 3/24/18 09:25 92 100 Result Diagram: 08/05/1752908/05/17 0530 Objective Remarks GENERAL: Well-nourished, well-developed patient. CARDIOVASCULAR: Regular rate and rhythm without murmurs, gallops, or rubs. RESPIRATORY: Breath sounds equal bilaterally. No accessory muscle use. ABDOMEN/GI: Abdomen soft, non-tender, bowel sounds present. Incision: Clean, dry and intact. Fundus: Firm, non-tender at umbilicus. GENITOURINARY: Light to moderate bleeding. EXTREMITIES: No cyanosis or edema, non-tender, without signs of DVT. Medications and IVs Current Medications Medications (Trade) Dose Ordered Sig/Daksha Route Start Time Stop Time Status Last Admin Magnesium Sulfate 1,000 ml @ 50 mls/hr Q20H IV 08/04/17 04:41 08/05/17 00:01 Cefazolin Sodium 2000 mg/Sodium Chloride 120 ml @ 240 mls/hr CHILD [employer]OLESCENT CARE IV 08/04/17 06:00 08/08/17 05:59 (Bicitra Liq) 30 ml [facility]ILD [employer]OLESCENT CARE PO 08/04/17 06:30 08/08/17 06:29 Oxytocin 500 ml @ 100 mls/hr UNSCH X1 PRN IV 08/04/17 17:30 08/05/17 17:29 (NS Flush) 2 ml BID IV FLUSH 08/04/17 09:00 (NS Flush) 2 ml UNSCH PRN IV FLUSH 08/04/17 07:30 (Motrin) 600 mg Q6H PRN PO 08/04/17 07:30 08/05/17 02:56 (M-M-R Ii Inj) 0.5 ml ONCE ONCE SQ 08/05/17 16:00 08/05/17 16:01 (Boostrix Inj) 0.5 ml ONCE ONCE IM 08/05/17 16:00 08/05/17 16:01 (Zofran Inj) 4 mg Q6H PRN IV PUSH 08/04/17 07:30 08/05/17 08:06 (Roxicodone) 5 mg Q4H PRN PO 08/04/17 07:45 (Roxicodone) 10 mg Q4H PRN PO 08/04/17 07:45 08/05/17 07:54 Assessment/Plan Assessment and Plan 27y/o female who is POD# 1 s/p CXN due to HELLP syndrome. -Continue routine care. -Percocet and Motrin PRN pain. -Encouraged OOB. Advised pelvic rest for 6 wks. Will need a f/u appt. in 1 wk for incision check. -Re: ctrl, she is undecided HELLP Platelets trending down, AST/ALT slightly lower s/p Mag -Continue to monitor labs -Post-op care as above Shlomo Merino MD Aug 05, 2017 09:20
[2017-08-05] MEDS ORDERED: DIPHTH/TETANUS/ACEL PERTUSSIS (BOOSTER) 0.5 ML VIAL/PFS IM ONE (16:00)
[2017-08-05] MEDS ORDERED: MEASLES, MUMPS, RUBELLA VACCINE 0.5 ML VIAL SQ ONE (16:00)
[2017-08-05 16:53] LABS: AUTOMATED NEUTROPHIL # 6.9 TH/MM3 (1.8-7.7); BASOPHIL % 0.2 % (0.0-2.0); EOSINOPHIL # 0.1 TH/MM3 (0-0.4); EOSINOPHIL % 1.4 % (0.0-4.0); HEMATOCRIT 27.9 % (35.0-46.0); HEMOGLOBIN 9.6 GM/DL (11.6-15.3); LYMPH % 14.2 % (9.0-44.0); LYMPHOCYTE # 1.3 TH/MM3 (1.0-4.8); MEAN CELL VOLUME 96.4 FL (80.0-100.0); MEAN CORPUSCULAR HEMOGLOBIN 33.3 PG (27.0-34.0); MEAN CORPUSCULAR HGB CONC 34.6 % (32.0-36.0); MEAN PLATELET VOLUME 9.5 FL (7.0-11.0); MONO % 6.2 % (0.0-8.0); MONOCYTE # 0.5 TH/MM3 (0-0.9); PLATELET COUNT 81 TH/MM3 (150-450); RED BLOOD COUNT 2.89 MIL/MM3 (4.00-5.30); RED CELL DISTRIBUTION WIDTH 13.8 % (11.6-17.2); WHITE BLOOD COUNT 8.8 TH/MM3 (4.0-11.0)
[2017-08-05] MEDS: SODIUM CHLORIDE 0.9% FLUSH 10 ML FLUSH IV FLUSH SCH (20:34)
[2017-08-06] MEDS: DOCUSATE SODIUM 100 MG CAP PO PRN ×2 (02:15→15:55)
[2017-08-06] MEDS: IBUPROFEN 600 MG TAB PO PRN ×4 (02:15→22:06)
[2017-08-06 06:29] LABS: ALBUMIN 2.4 GM/DL (3.4-5.0); ALKALINE PHOSPHATASE 105 U/L (45-117); ALT (GPT) 147 U/L (10-53); AST (GOT) 64 U/L (15-37); BLOOD UREA NITROGEN 8 MG/DL (7-18); CALCIUM 7.8 MG/DL (8.5-10.1); CHLORIDE 105 MEQ/L (98-107); CREATININE 0.68 MG/DL (0.50-1.00); GLOMERULAR FILTRATION RATE 102 ML/MIN (>89); GLUCOSE,RANDOM 77 MG/DL (74-106); SODIUM (NA) 137 MEQ/L (136-145); TOTAL BILIRUBIN ADULT 0.3 MG/DL (0.2-1.0)
--- NOTE | 2017-08-06 06:59 | HHI.OB ---
Subjective Post Operative Day: 2 Remarks Postoperative day #2 due to HELLP syndrome. AFVSS overnight. Pain well controlled. Decreased lochia. Denies dysuria. No breast tenderness. She is feeding the baby via breast. Appetite good. No nausea or vomiting. Endorses flatus. No bowel movement. Ambulating well. Denies calf pain, shortness of breath, or cough. Otherwise, she is doing well this morning and has no other complaints. Objective Vitals/I&O Vital Signs Date Time Temp Pulse Resp B/P (MAP) Pulse Ox O2 Delivery O2 Flow Rate FiO2 08/05/17 16:03 98.4 85 18 119/72 (88) 08/05/17 09:00 77 18 113/73 (86) 08/05/17 09:00 98.3 08/05/17 08:30 18 Result Diagram: 08/05/17 1637 08/06/17 0441 Objective Remarks GENERAL: Well-nourished, well-developed patient. CARDIOVASCULAR: Regular rate and rhythm without murmurs, gallops, or rubs. RESPIRATORY: Breath sounds equal bilaterally. No accessory muscle use. ABDOMEN/GI: Abdomen soft, non-tender, bowel sounds present. Incision: Clean, dry and intact. Fundus: Firm, non-tender below umbilicus. GENITOURINARY: Light to moderate bleeding. EXTREMITIES: No cyanosis or edema, non-tender, without signs of DVT. Medications and IVs Current Medications Medications (Trade) Dose Ordered Sig/Daksha Route Start Time Stop Time Status Last Admin Magnesium Sulfate 1,000 ml @ 50 mls/hr Q20H IV 08/04/17 04:41 08/05/17 00:01 Cefazolin Sodium 2000 mg/Sodium Chloride 120 ml @ 240 mls/hr JAVA PROGRAMMER ANALYST IV 08/04/17 06:00 08/08/17 05:59 (Bicitra Liq) 30 ml J[employer] PROGRAMMER ANALYST PO 08/04/17 06:30 08/08/17 06:29 (NS Flush) 2 ml BID IV FLUSH 08/04/17 09:00 (NS Flush) 2 ml UNSCH PRN IV FLUSH 08/04/17 07:30 (Zofran Inj) 4 mg Q6H PRN IV PUSH 08/04/17 07:30 08/05/17 08:06 (Roxicodone) 5 mg Q4H PRN PO 08/04/17 07:45 (Roxicodone) 10 mg Q4H PRN PO 08/04/17 07:45 08/06/17 02:15 (Colace) 100 mg Q12H PRN PO 08/05/17 21:45 08/06/17 02:15 (Motrin) 600 mg Q6H PRN PO 08/05/17 21:45 08/06/17 02:15 Assessment/Plan Assessment and Plan 27y/o female who is POD# 2 s/p CXN due to HELLP syndrome. -Continue routine care -Percocet and Motrin PRN pain -Encouraged OOB. Advised pelvic rest for 6 wks. Will need a f/u appt. in 1 wk for incision check. -Re: ctrl, she is still undecided HELLP Platelets improving AST/ALT much lower: 64/147 today vs 209/219 on 08/05 s/p Mag -Continue to monitor labs -Post-op care as above Discharge Planning Pt would like to be discharged home today Nu Cardoza MD Aug 06, 2017 06:59
[2017-08-06 07:00] LABS: AUTOMATED NEUTROPHIL # 6.7 TH/MM3 (1.8-7.7); BASOPHIL # 0.1 TH/MM3 (0-0.2); BASOPHIL % 0.7 % (0.0-2.0); EOSINOPHIL # 0.2 TH/MM3 (0-0.4); EOSINOPHIL % 2.5 % (0.0-4.0); HEMATOCRIT 27.6 % (35.0-46.0); HEMOGLOBIN 9.6 GM/DL (11.6-15.3); LYMPH % 14.8 % (9.0-44.0); LYMPHOCYTE # 1.3 TH/MM3 (1.0-4.8); MEAN CELL VOLUME 96.8 FL (80.0-100.0); MEAN CORPUSCULAR HEMOGLOBIN 33.6 PG (27.0-34.0); MEAN CORPUSCULAR HGB CONC 34.7 % (32.0-36.0); MEAN PLATELET VOLUME 10.2 FL (7.0-11.0); MONO % 6.3 % (0.0-8.0); MONOCYTE # 0.6 TH/MM3 (0-0.9); NEUT % 75.7 % (16.0-70.0); PLATELET COUNT 85 TH/MM3 (150-450); RED BLOOD COUNT 2.85 MIL/MM3 (4.00-5.30); RED CELL DISTRIBUTION WIDTH 13.8 % (11.6-17.2); WHITE BLOOD COUNT 8.8 TH/MM3 (4.0-11.0)
[2017-08-06] MEDS ORDERED: DOCU1CAP39 PO (07:11)
[2017-08-06] MEDS ORDERED: OXYC-395 PO (07:11)
[2017-08-06] MEDS ORDERED: IBUP-232 PO (07:11)
--- NOTE | 2017-08-06 07:12 | HHI.DCPOC ---
Discharge Care Plan Diagnosis: (1) HELLP (hemolytic anemia/elev liver enzymes/low platelets in ) (2) delivery due to maternal disorder, delivered, current hospitalization Report Symptoms to Your Doctor -Temperature above 100.5 degrees -Redness, of incision or excessive or foul smelling drainage -Unusual pain or calf pain -Increased vaginal bleeding -Painful or difficulty urinating -Feelings of extreme sadness or anxiety after 2 weeks Goals to Promote Your Health * To prevent worsening of your condition and complications * To maintain your health at the optimal level Directions to Meet Your Goals Take your medications as prescribed Follow your dietary instruction Follow activity as directed Ensure plenty of rest for recovery Drink fluids for hydration Keep your appointments as scheduled Take your immunizations and boosters as scheduled If your symptoms worsen call your PCP, if no PCP go to Urgent Care Center or Emergency Room Smoking is Dangerous to Your Health. Avoid second hand smoke Call the 24-hour crisis hotline for domestic abuse at Nu Cardoza MD Aug 06, 2017 07:12
[2017-08-06 08:16] VITALS: BP 103/57; PULSE 67; RESP 18; TEMP 98
[2017-08-06 14:30] VITALS: BP 106/71; PULSE 80; RESP 17; TEMP 98.4
[2017-08-06 20:00] VITALS: BP 122/76; PULSE 81; RESP 18; TEMP 98; O2SAT 97
[2017-08-06] MEDS: SODIUM CHLORIDE 0.9% FLUSH 10 ML FLUSH IV FLUSH SCH (21:00)
[2017-08-07] VITALS: BP 115/73; PULSE 82; RESP 18; TEMP 98.2; O2SAT 97
[2017-08-07 04:59] LABS: HEMATOCRIT 26.7 % (35.0-46.0); HEMOGLOBIN 9.4 GM/DL (11.6-15.3); MEAN CELL VOLUME 94.9 FL (80.0-100.0); MEAN CORPUSCULAR HEMOGLOBIN 33.2 PG (27.0-34.0); MEAN PLATELET VOLUME 8.8 FL (7.0-11.0); PLATELET COUNT 98 TH/MM3 (150-450); RED BLOOD COUNT 2.82 MIL/MM3 (4.00-5.30); RED CELL DISTRIBUTION WIDTH 13.4 % (11.6-17.2); WHITE BLOOD COUNT 6.8 TH/MM3 (4.0-11.0)
[2017-08-07] MEDS: IBUPROFEN 600 MG TAB PO PRN ×4 (05:01→23:59)
[2017-08-07] MEDS: DOCUSATE SODIUM 100 MG CAP PO PRN (05:01)
[2017-08-07 05:40] LABS: ALBUMIN 2.2 GM/DL (3.4-5.0); ALKALINE PHOSPHATASE 101 U/L (45-117); ALT (GPT) 173 U/L (10-53); AST (GOT) 132 U/L (15-37); BICARBONATE 22.7 MEQ/L (21.0-32.0); BLOOD UREA NITROGEN 13 MG/DL (7-18); CALCIUM 8.4 MG/DL (8.5-10.1); CHLORIDE 107 MEQ/L (98-107); CREATININE 0.48 MG/DL (0.50-1.00); GLOMERULAR FILTRATION RATE 153 ML/MIN (>89); GLUCOSE,RANDOM 73 MG/DL (74-106); SODIUM (NA) 139 MEQ/L (136-145); TOTAL BILIRUBIN ADULT 0.3 MG/DL (0.2-1.0); TOTAL PROTEIN 5.8 GM/DL (6.4-8.2)
--- NOTE | 2017-08-07 06:26 | HHI.OB ---
Subjective Post Operative Day: 3 Remarks Postoperative day #3 due to HELLP syndrome. AFVSS overnight. Pain well controlled. Decreased lochia. Denies dysuria. She is feeding the baby via breast. Appetite good. No nausea or vomiting. Endorses flatus. No bowel movement. Ambulating well. Denies calf pain, shortness of breath, or cough. Otherwise, she is doing well this morning and has no other complaints. Objective Vitals/I&O Vital Signs Date Time Temp Pulse Resp B/P (MAP) Pulse Ox O2 Delivery O2 Flow Rate FiO2 08/07/17 00:00 98.2 08/07/17 00:00 82 18 115/73 (87) 97 08/06/17 20:00 98.0 81 18 122/76 (91) 97 08/06/17 14:30 98.4 80 17 106/71 (83) 08/06/17 08:16 98.0 67 18 08/06/17 08:16 103/57 (72) Result Diagram: 08/07/1744908/07/17 045 Objective Remarks GENERAL: Well-nourished, well-developed patient. CARDIOVASCULAR: Regular rate and rhythm without murmurs, gallops, or rubs. RESPIRATORY: Breath sounds equal bilaterally. No accessory muscle use. ABDOMEN/GI: Abdomen soft, non-tender, bowel sounds present. Incision: Clean, dry and intact. Fundus: Firm, non-tender below umbilicus. GENITOURINARY: Light to moderate bleeding. EXTREMITIES: No cyanosis or edema, non-tender, without signs of DVT. Medications and IVs Current Medications Medications (Trade) Dose Ordered Sig/Daksha Route Start Time Stop Time Status Last Admin Magnesium Sulfate 1,000 ml @ 50 mls/hr Q20H IV 08/04/17 04:41 08/05/17 00:01 Cefazolin Sodium 2000 mg/Sodium Chloride 120 ml @ 240 mls/hr [employer]INET [employer]IVE SANDB[employer]ER IV 08/04/17 06:00 08/08/17 05:59 (Bicitra Liq) 30 ml [employer]ET [employer] SANDB[employer]ER PO 08/04/17 06:30 08/08/17 06:29 (NS Flush) 2 ml BID IV FLUSH 08/04/17 09:00 (NS Flush) 2 ml UNSCH PRN IV FLUSH 08/04/17 07:30 (Zofran Inj) 4 mg Q6H PRN IV PUSH 08/04/17 07:30 08/05/17 08:06 (Roxicodone) 5 mg Q4H PRN PO 08/04/17 07:45 (Roxicodone) 10 mg Q4H PRN PO 08/04/17 07:45 08/06/17 09:10 (Colace) 100 mg Q12H PRN PO 08/05/17 21:45 08/07/17 05:01 (Motrin) 600 mg Q6H PRN PO 08/05/17 21:45 08/07/17 05:01 Assessment/Plan Assessment and Plan 27y/o female who is POD# 3 s/p CXN due to HELLP syndrome. -Continue routine care -Percocet and Motrin PRN pain -Encouraged OOB. Advised pelvic rest for 6 wks. Will need a f/u appt. in 1 wk for incision check. -Re: ctrl, she is still undecided HELLP -BP wnl: ranged from 115/73-122/76 overnight -Platelets improved to 98 -AST/ALT increased compared to the previous day: 132/173 today vs 64/147 on 08/06 -Continue to monitor labs DW Dr. Larios Discharge Planning Possible discharge today with close follow up with OB provider and labs Nu Cardoza MD Aug 07, 2017 06:26
[2017-08-07 09:20] VITALS: BP 116/75; PULSE 76; RESP 16; TEMP 98.1
[2017-08-08 05:54] LABS: HEMOGLOBIN 9.4 GM/DL (11.6-15.3); MEAN CORPUSCULAR HEMOGLOBIN 33.6 PG (27.0-34.0); MEAN PLATELET VOLUME 9.3 FL (7.0-11.0); PLATELET COUNT 125 TH/MM3 (150-450); RED BLOOD COUNT 2.81 MIL/MM3 (4.00-5.30); RED CELL DISTRIBUTION WIDTH 13.8 % (11.6-17.2); WHITE BLOOD COUNT 6.4 TH/MM3 (4.0-11.0)
[2017-08-08 06:23] LABS: ALBUMIN 2.3 GM/DL (3.4-5.0); ALT (GPT) 232 U/L (10-53); AST (GOT) 138 U/L (15-37); BICARBONATE 23.5 MEQ/L (21.0-32.0); BLOOD UREA NITROGEN 11 MG/DL (7-18); CALCIUM 8.1 MG/DL (8.5-10.1); CHLORIDE 110 MEQ/L (98-107); CREATININE 0.57 MG/DL (0.50-1.00); GLOMERULAR FILTRATION RATE 125 ML/MIN (>89); GLUCOSE,RANDOM 84 MG/DL (74-106); SODIUM (NA) 140 MEQ/L (136-145)
[2017-08-08] MEDS: IBUPROFEN 600 MG TAB PO PRN ×3 (06:24→21:07)
[2017-08-08 06:26] LABS: ALKALINE PHOSPHATASE 101 U/L (45-117); TOTAL BILIRUBIN ADULT 0.2 MG/DL (0.2-1.0); TOTAL PROTEIN 5.9 GM/DL (6.4-8.2)
[2017-08-08] MEDS ORDERED: SODIUM CHLOR 0.9% 1000 ML INJ 1,000 ML IV ONE (06:45)
--- NOTE | 2017-08-08 07:11 | HHI.OB ---
Subjective Post Operative Day: 4 Remarks Postoperative day #4 due to HELLP syndrome. AFVSS overnight. Pain well controlled. Decreased lochia. Denies dysuria. She is feeding the baby via breast. Appetite good. No nausea or vomiting. Endorses flatus. No bowel movement. Ambulating well. Denies calf pain, shortness of breath, or cough. Otherwise, she is doing well this morning and has no other complaints. Objective Vitals/I&O Vital Signs Date Time Temp Pulse Resp B/P (MAP) Pulse Ox O2 Delivery O2 Flow Rate FiO2 08/07/17 09:20 98.1 08/07/17 09:20 76 16 116/75 (89) Result Diagram: 08/08/1751708/08/17517 Objective Remarks GENERAL: Well-nourished, well-developed patient. CARDIOVASCULAR: Regular rate and rhythm without murmurs, gallops, or rubs. RESPIRATORY: Breath sounds equal bilaterally. No accessory muscle use. ABDOMEN/GI: Abdomen soft, non-tender, bowel sounds present. Incision: Clean, dry and intact. Fundus: Firm, non-tender below umbilicus. GENITOURINARY: Light to moderate bleeding. EXTREMITIES: No cyanosis or edema, non-tender, without signs of DVT. Medications and IVs Current Medications Medications (Trade) Dose Ordered Sig/Daksha Route Start Time Stop Time Status Last Admin Magnesium Sulfate 1,000 ml @ 50 mls/hr Q20H IV 08/04/17 04:41 08/05/17 00:01 (NS Flush) 2 ml BID IV FLUSH 08/04/17 09:00 (NS Flush) 2 ml UNSCH PRN IV FLUSH 08/04/17 07:30 (Zofran Inj) 4 mg Q6H PRN IV PUSH 08/04/17 07:30 08/05/17 08:06 (Roxicodone) 5 mg Q4H PRN PO 08/04/17 07:45 (Roxicodone) 10 mg Q4H PRN PO 08/04/17 07:45 08/06/17 09:10 (Colace) 100 mg Q12H PRN PO 08/05/17 21:45 08/07/17 05:01 (Motrin) 600 mg Q6H PRN PO 08/05/17 21:45 08/08/17 06:24 Sodium Chloride 1,000 ml @ 999 mls/hr BOLUS ONCE IV 08/08/17 06:45 08/08/17 07:45 Assessment/Plan Assessment and Plan 27y/o female who is POD# 4 s/p CXN due to HELLP syndrome -Continue routine care -Percocet and Motrin PRN pain -Encouraged OOB Advised pelvic rest for 6 wks Will need a f/u appt. in 1 wk for incision check -Re: ctrl, she is still undecided HELLP -BP wnl: ranged from 115/73-122/76 overnight -Platelets improved to 125 -AST/ALT increased compared to the previous day: today 138/232 vs 132/173 on -Check hepatitis profile -Liver ultrasound -1 L NS bolus -Repeat CMP at 1200 today -Continue to monitor labs DW Dr. Vasquez Discharge Planning Possible discharge today with close follow up with OB provider and labs Nu Cardoza MD Aug 08, 2017 07:11
--- NOTE | 2017-08-08 09:55 | RADRPT ---
EXAM DATE/TIME: 08/08/2017 08:58 [facility] COMPARISON: No previous studies available for comparison. INDICATIONS : Increased lab values. MEDICAL HISTORY : Ovarian cysts. SURGICAL HISTORY : Breast augmentation. ENCOUNTER: Initial ACUITY: 1 day PAIN SCORE: 0/10 LOCATION: Bilateral upper quadrant MEASUREMENTS: LIVER: 16.1 cm length COMMON DUCT: 5 mm RIGHT KIDNEY: 10.4 x 5.1 x 4.0 cm SPLEEN: 12.4 cm length FINDINGS: LIVER: Normal echotexture without focal lesion or ductal dilatation. COMMON DUCT: No intraluminal mass or stone visualized. GALLBLADDER: Contains no stones, demonstrates no wall thickening or pericholecystic fluid. PANCREAS: The visualized portions are within normal limits. RIGHT KIDNEY: No hydronephrosis, stone or mass. SPLEEN: Upper limits of normal size. No focal lesion. CONCLUSION: No focal sonographic abnormalities Bandar Henderson MD on August 08, 2017 at 9:52 Board Certified Radiologist. This report was verified electronically.
[2017-08-08] MEDS: DOCUSATE SODIUM 100 MG CAP PO PRN (13:46)
[2017-08-08] MEDS: SODIUM CHLORIDE 0.9% FLUSH 10 ML FLUSH IV FLUSH SCH (20:26)
[2017-08-08 20:33] VITALS: BP 125/80; PULSE 81; RESP 18; TEMP 98.1
[2017-08-09] MEDS: MAGNESIUM SULFATE 40 GM PREMIX 1,000 ML IV SCH (02:56)
[2017-08-09] MEDS: IBUPROFEN 600 MG TAB PO PRN (04:14)
[2017-08-09 05:52] LABS: HEMATOCRIT 27.9 % (35.0-46.0); HEMOGLOBIN 9.6 GM/DL (11.6-15.3); MEAN CORPUSCULAR HGB CONC 34.4 % (32.0-36.0); PLATELET COUNT 158 TH/MM3 (150-450); RED BLOOD COUNT 2.91 MIL/MM3 (4.00-5.30); RED CELL DISTRIBUTION WIDTH 13.8 % (11.6-17.2); WHITE BLOOD COUNT 6.7 TH/MM3 (4.0-11.0)
[2017-08-09 06:15] LABS: ALBUMIN 2.5 GM/DL (3.4-5.0); AST (GOT) 62 U/L (15-37); BICARBONATE 22.2 MEQ/L (21.0-32.0); BLOOD UREA NITROGEN 10 MG/DL (7-18); CALCIUM 8.2 MG/DL (8.5-10.1); CHLORIDE 111 MEQ/L (98-107); CREATININE 0.61 MG/DL (0.50-1.00); GLOMERULAR FILTRATION RATE 116 ML/MIN (>89); GLUCOSE,RANDOM 87 MG/DL (74-106); SODIUM (NA) 141 MEQ/L (136-145)
[2017-08-09 06:16] LABS: ALT (GPT) 175 U/L (10-53)
[2017-08-09 06:17] LABS: ALKALINE PHOSPHATASE 106 U/L (45-117); TOTAL BILIRUBIN ADULT 0.3 MG/DL (0.2-1.0); TOTAL PROTEIN 6.3 GM/DL (6.4-8.2)
--- NOTE | 2017-08-09 06:24 | HHI.OB ---
Subjective Post Operative Day: 5 Remarks Postoperative day #5 due to HELLP syndrome. AFVSS overnight. Pain well controlled. Decreased lochia. Denies dysuria. She is feeding the baby via breast. Appetite good. No nausea or vomiting. Endorses flatus. Had a bowel movement. Ambulating well. Denies calf pain, shortness of breath, or cough. No chest pain or RUQ pain. Otherwise, she is doing well this morning and has no other complaints. Objective Vitals/I&O Vital Signs Date Time Temp Pulse Resp B/P (MAP) Pulse Ox O2 Delivery O2 Flow Rate FiO2 08/08/17 20:33 98.1 81 18 125/80 (95) Result Diagram: 08/09/17 0508 08/09/17 0508 Objective Remarks GENERAL: Well-nourished, well-developed patient. CARDIOVASCULAR: Regular rate and rhythm without murmurs, gallops, or rubs. RESPIRATORY: Breath sounds equal bilaterally. No accessory muscle use. ABDOMEN/GI: Abdomen soft, non-tender, bowel sounds present. Incision: Clean, dry and intact. Fundus: Firm, non-tender below umbilicus. GENITOURINARY: Light bleeding. EXTREMITIES: No cyanosis or edema, non-tender, without signs of DVT. Medications and IVs Current Medications Medications (Trade) Dose Ordered Sig/Daksha Route Start Time Stop Time Status Last Admin Magnesium Sulfate 1,000 ml @ 50 mls/hr Q20H IV 08/04/17 04:41 08/05/17 00:01 (NS Flush) 2 ml BID IV FLUSH 08/04/17 09:00 (NS Flush) 2 ml UNSCH PRN IV FLUSH 08/04/17 07:30 (Zofran Inj) 4 mg Q6H PRN IV PUSH 08/04/17 07:30 08/05/17 08:06 (Roxicodone) 5 mg Q4H PRN PO 08/04/17 07:45 (Roxicodone) 10 mg Q4H PRN PO 08/04/17 07:45 08/06/17 09:10 (Colace) 100 mg Q12H PRN PO 08/05/17 21:45 08/08/17 13:46 (Motrin) 600 mg Q6H PRN PO 08/05/17 21:45 08/09/17 04:14 Assessment/Plan Assessment and Plan 27y/o female who is POD# 5 s/p CXN due to HELLP syndrome -Continue routine care -Percocet and Motrin PRN pain -Encouraged OOB Advised pelvic rest for 6 wks Will need a f/u appt. in 1 wk for incision check/HELLP syndrome follow-up -Re: ctrl, she is still deciding HELLP -BP wnl overnight -Platelets improved to 158 -AST/ALT much improved today compared to the previous day: today 62/175 vs 138/ 232 on 08/08 -Hepatitis profile nonreactive -Liver ultrasound normal DW Dr. Hanson Discharge Planning Discharge home today with close follow up with OB provider and repeat CBC and CMP in 2-3 days Nu Cardoza MD Aug 09, 2017 06:24
[2017-08-09] MEDS ORDERED: FERR325T18 PO (06:30)
== END 2017-08-09 09:30 | disposition home or self-care (01) | DRG 766 ==
LOC: HOBED 02:45 → H2EB 04:51 → H2EA 05:48 → H1EA 08-05 08:19
PROVIDERS: ADMIT Obstetrics & Gynecology; ATTEND Obstetrics & Gynecology
PROC: 10D00Z1 Extraction of Products of Conception, Low, Open Approach (ICD-10-PCS; principal; 2017-08-04)
DX: O14.24 HELLP syndrome, complicating childbirth (principal); O99.284 Endocrine, nutritional and metabolic diseases complicating childbirth; E05.90 Thyrotoxicosis, unspecified without thyrotoxic crisis or storm; Z37.0 Single live birth; Z3A.38 38 weeks gestation of pregnancy
CPT/HCPCS: 59025; 76705; 80053; 80074; 82150; 82570; 83690; 84156; 84550; 85025; 85027; 85610; 85730; 88307; 90707; 96361; 96374; 96375; J0131; J0690; J0780; J1100; J1170; J2060; J2175; J2270; J2274; J2405; J2590; J3010; J3475; J7030; J7120

== ENCOUNTER → 2017-08-13 | Outpatient (CLI) | payer OTHER ==
[~2017-08-13] MED LIST changes: +DOCU1CAP39 PO; +FERR325T18 PO; +IBUP-232 PO; +OXYC-395 PO; -TYLETAB34 PO
[2017-08-13 13:50] LABS: HEMATOCRIT 32.3 % (35.0-46.0); HEMOGLOBIN 10.9 GM/DL (11.6-15.3); MEAN CELL VOLUME 96.4 FL (80.0-100.0); MEAN CORPUSCULAR HEMOGLOBIN 32.5 PG (27.0-34.0); MEAN CORPUSCULAR HGB CONC 33.7 % (32.0-36.0); MEAN PLATELET VOLUME 8.1 FL (7.0-11.0); PLATELET COUNT 266 TH/MM3 (150-450); RED BLOOD COUNT 3.35 MIL/MM3 (4.00-5.30); RED CELL DISTRIBUTION WIDTH 13.6 % (11.6-17.2); WHITE BLOOD COUNT 6.7 TH/MM3 (4.0-11.0)
[2017-08-13 14:08] LABS: ALBUMIN 3.1 GM/DL (3.4-5.0); AST (GOT) 22 U/L (15-37); BICARBONATE 25.9 MEQ/L (21.0-32.0); BLOOD UREA NITROGEN 14 MG/DL (7-18); CALCIUM 8.3 MG/DL (8.5-10.1); CHLORIDE 111 MEQ/L (98-107); GLOMERULAR FILTRATION RATE 99 ML/MIN (>89); GLUCOSE,FASTING 84 MG/DL (74-99); SODIUM (NA) 142 MEQ/L (136-145)
[2017-08-13 14:09] LABS: ALT (GPT) 68 U/L (10-53)
[2017-08-13 14:11] LABS: ALKALINE PHOSPHATASE 95 U/L (45-117); TOTAL BILIRUBIN ADULT 0.3 MG/DL (0.2-1.0); TOTAL PROTEIN 6.7 GM/DL (6.4-8.2)
== END ==
LOC: CLAB 13:22
PROVIDERS: ATTEND Family Medicine
DX: O90.9 Complication of the puerperium, unspecified (principal)
CPT/HCPCS: 36415; 80053; 85027